=== PATIENT | female | born 1960 | race Caucasian/White ===

== ENCOUNTER 2024-01-08 13:37 | Outpatient (OUT) | payer OTHER, SELFPAY ==
--- NOTE | 2024-01-08 13:50 | MM_ITS ---
Patient Name: KEITH LUNA MR#: [id number] : 1960 Exam Date: 01/08/2024 Ordering Doctor: DRU Redman CNP RADIOLOGY REPORT PROCEDURE: MM TOMOSYNTHESIS SCREENING BI COMPARISON: MG MAMM SCREEN 3D SANNA CAD, 01/05/2023. MG MAMM SCREEN 3D SANNA CAD, 11/14/2021. MG MAMM SCREEN SANNA W CAD, 11/01/2019. MG MAMM SANNA SCRN W CAD DIG, 04/06/2013. INDICATIONS: Screening Calculator Name NCI Breast Cancer Risk Assessment Tool 5 Year Breast Cancer Risk 1.30% Lifetime Breast Cancer Risk 5.50% Personal Breast Cancer No Personal Ovarian Cancer No Treatments None Family Cancers Nephew with leukemia cancer at age 2. LOCATION: [facility] BREAST COMPOSITION: Extremely dense, which lowers the sensitivity of mammography. FINDINGS: DIAGNOSTIC CATEGORY 2--BENIGN FINDING: RIGHT BREAST: No significant suspicious finding. Scattered benign-appearing calcifications are present. No significant change has occurred. LEFT BREAST: No significant suspicious finding. Scattered benign-appearing calcifications are present. Stable, chronic axilla tail lymph node favoring benign etiology. No significant change has occurred. RECOMMENDATIONS: ROUTINE MAMMOGRAM AND CLINICAL EVALUATION IN 12 MONTHS. PLEASE NOTE: A NORMAL MAMMOGRAM DOES NOT EXCLUDE THE POSSIBILITY OF BREAST CANCER. A CLINICALLY SUSPICIOUS PALPABLE LUMP SHOULD BE BIOPSIED. Dictated by: Jeff Zamorano M.D. on 01/08/2024 at 15:09 Approved by: eJff Zamorano M.D. on 01/08/2024 at 15:12
[2024-01-08 14:01] LABS: Basophils Absolute Auto 0.1 10^3/uL (0.0-0.1); Basophils Percent Auto 0.8 % (0.2-2.0); Eosinophils Absolute Auto 0.1 10^3/uL (0.0-0.7); Eosinophils Percent Auto 1.2 % (0.9-7.0); Hematocrit 38.9 % (36.0-48.0); Hemoglobin 12.6 g/dL (12.0-16.0); Immature Granulocytes Abs Auto 0.03 10^3/uL (0.00-0.03); Immature Granulocytes Pct Auto 0.3 % (0.0-0.5); Lymphocytes Percent Auto 32.2 % (20.5-60.0); Mean Corpuscular HGB Conc 32.4 g/dL (29.9-35.2); Mean Corpuscular Hemoglobin 30.1 pg (26.7-34.0); Mean Corpuscular Volume 92.8 fL (81.0-99.0); Mean Platelet Volume 9.1 fL (9.5-13.5); Monocytes Absolute Auto 0.7 10^3/uL (0.3-0.8); Monocytes Percent Auto 7.3 % (1.7-12.0); Neutrophils Absolute Auto 5.3 10^3/uL (1.4-6.5); Neutrophils Percent Auto 58.2 % (43.0-75.0); Platelet Count 343 10^3/uL (150-450); Red Blood Count 4.19 10^6/uL (4.20-5.40); White Blood Count 9.2 10^3/uL (4.0-11.0)
[2024-01-08 15:20] LABS: Alanine Aminotransferase 20 U/L (14-59); Albumin Globulin Ratio 1.2; Albumin Level 4.3 g/dL (3.4-5.0); Alkaline Phosphatase 78 U/L (46-116); Anion Gap 14.7; Aspartate Amino Transferase 13 U/L (15-37); BUN Creatinine Ratio 9.8; Bilirubin Total 0.5 mg/dL (0.2-1.0); Calcium 9.3 mg/dL (8.5-10.1); Carbon Dioxide 26.9 mmol/L (21.0-32.0); Chloride 102 mmol/L (98-107); Chol HDL Ratio 2.4; Cholesterol 153 mg/dL (<=200); Estimated GFR (African America 60 (>=60); Estimated GFR (Non-African Ame 49 (>=60); Globulin 3.5 g/dL; Glucose 87 mg/dL (74-106); HDL Cholesterol 63 mg/dL (40-60); Potassium 3.6 mmol/L (3.5-5.1); Sodium 140 mmol/L (136-145); Total Protein 7.8 g/dL (6.4-8.2); Triglycerides 106 mg/dL (<=150); VLDL CHOLESTEROL 21.2 mg/dL
== END 2024-01-08 13:38 | disposition home or self-care (01) ==
LOC: MAMMO 13:37
PROVIDERS: PCP Nurse Practitioner; Visit Provider Nurse Practitioner
DX: Z12.31 Encounter for screening mammogram for malignant neoplasm of breast (principal); D50.9 Iron deficiency anemia, unspecified; E78.2 Mixed hyperlipidemia; Z72.0 Tobacco use; Z80.6 Family history of leukemia
CPT/HCPCS: 36415; 77063; 77067; 80053; 80061; 82728; 83540; 85025

== ENCOUNTER 2024-01-09 12:20 | Outpatient (REF) | payer OTHER, SELFPAY ==
--- OUTSIDE RECORDS SUMMARY | 2024-01-09 12:22 | XMS_ITS | CCD ---
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 PREOPERATIVE DIAGNOSIS: Retained symptomatic hardware, left distal radius. POSTOPERATIVE DIAGNOSIS: Retained symptomatic hardware, left distal radius. PROCEDURE: Removal of symptomatic hardware, left distal radius. BEHAVIORAL HEALTH WORKER: Praful Celestin M.D. ANESTHESIA: Regional with an axillary block. INDICATION FOR SURGERY: The patient is a 60-year-old female, who underwent an open reduction and internal fixation for treatment of a distal radius fracture. She did well as far as the fracture goes with respect to healing. She has regained all of the motion. She presented recently with some swelling and tenderness over the volar radial aspect of the wrist. It looks as though she has some irritation from the hardware. We are worried about the flexor pollicis longus tendon in particular. I felt the removal of the hardware was indicated. She was brought to the operating room today for that purpose. The risks and benefits were explained prior to surgery and with good understanding it is agreed to proceed. NARRATION: The patient was brought to the operating room and placed on the table in the supine position. An axillary block had been administered per the Anesthesia Service in the holding area. A tourniquet was placed around the proximal left arm. The left upper extremity was prepped and draped out in a sterile manner. She was given preoperative antibiotics. To begin the procedure, after standard time-out, the arm was exsanguinated with an Esmarch bandage and the tourniquet was inflated to 250 mmHg. Using a #15 blade, the previous surgical scar was opened up and utilized once again. Sharp dissection was carried out through the subcutaneous tissue. I could see the palmaris longus tendon on the ulnar side of our exposure just looking under the skin flap and I could see the FCR tendon radially. We went over to the FCR and dissected down onto the tendon. There was a little bit of scar tissue as would be expected. The tendon was dissected free and mobilized and retracted radially. We incised through the floor of the FCR sheath. The palmaris longus tendon was a bit displaced ulnarly. I dissected that out just with the forceps, moved the tendon a bit to make sure that it was the FPL. We went radial to that and got down onto the plate with a Bovie, just elevated soft tissues off the plate from radial to ulnar. Once we had the entire plate exposed, the screws were all removed without difficulty. The plate was taken down. Soft tissue scar from around the plate was debrided with a rongeur. With a Bertrand elevator, I just scraped the volar cortex. The fracture looks to be well healed. C-arm was brought in and I got an AP and lateral view and the hardware was completely out the fracture solid. Seeing that, I dissected the FPL tendon out a little bit more just to get past the area where the end of the plate was. The plate was a little proud and just distal to the watershed zone. The FPL tendon looks fine. There was no fraying or wear. There was a little bit of thick tissue around it that was debrided. The wound was irrigated with normal saline solution. The skin was closed with buried 3-0 Vicryl and then 4-0 Novafil. A sterile dressing of Xeroform gauze, 4x4 fluffs, Kerlix, and an Brian bandage was applied. The tourniquet was released and the drapes were removed. All sponge and needle counts were correct at the time of closure. Her arm was placed into a sling because of the regional block. She was brought to the recovery room in stable condition, having tolerated the procedure well. Electronically Signed by: Toni Elliott M.D. 12/20/2020 01:51 P Toni Elliott M.D. Date Dict: 12/20/2020/08:39 A/Toni Elliott M.D. Date Trans: 12/20/2020 09:00 A/adelita RIVERS_JN:[id number] cc: José Miguel Pedraza D.O. [address] [place] [address] Normal [facility] POC GLUCOSE LABon 12-20-2020 Glucose [Mass/Vol] 89 mg/dL Normal 70-100 [facility] Comment on above: Performed By: #### 8 [id number] #### [address] WRIST LEFT 2 VWSon WRIST LEFT 2 VWS [facility] Department of Radiology [address] [place] [id number] Patient Name: ROSIBEL DON : 1960 Sex: F Age: Race: White Pt. Location: OUTP Patient Status: O Ordered Date: 12/20/2020 8:15:00 AM Completed Date: 12/20/2020 08:40 AM Requesting Provider: TONI ELLIOTT Attending Provider: TONI ELLIOTT Report Copy To: Signs & Symptoms: Hardware removal left wrist History: Comments: Hardware removal left wrist Exam: WRIST LEFT 2 S WRIST LEFT 2 S 12/20/2020 8:40 AM CLINICAL INDICATIONS: Hardware removal left wrist TECHNOLOGIST COMMENTS: Hardware removal of the left wrist with Dr. Elliott - 0.80 minutes of fluoro time 2i mages Siemens c-arm Entered at 0800 and exited at 0830 QUESTION FOR THE RADIOLOGIST: Hardware removal left wrist PROTOCOL: AP(PA) and Lateral views were obtained. COMPARISON: None FINDINGS: For documentation purposes. IMPRESSION: Documentation purposes Electronically signed: Bjorn Tomlinson. Transcribed by: [id number], User Resident: Electronically Signed by: BJORN TOMLINSON @ 12/20/2020 09:10 AM Normal [facility] Comment on above: Order Comment: Hardw are removal left wrist *SARS-CoV-2 COVID-19on 12-17 SARS-CoV-2 (COVID-19) RNA CAREN+probe Ql (Unsp spec) Not detected Normal Not Detected [facility] Comment on above: Order Comment: The A ptima SARS-CoV-2 assay is a nucleic acid amplification test intended for the qualitative detection of RNA from SARS-CoV-2 isolated and purified from nasopharyngeal (CORPORATE LAW ASSISTANT),oropharyngeal (OP), nasal swab, sputum, and bronchoalveolar lavage (BAL) specimens from patients with signs and symptoms of infection who are suspected of COVID-19. Results are for the identification of SARS-CoV-2 RNA. The SARS-CoV-2 RNA is generally detectable during the acute phase of infection. The Aptima SARS-CoV-2 Assay on the iStoryTime and iStoryTime Fusion system is intended for use by laboratory personnel specifically instructed and trained in the operation of the [place] and iStoryTime Fusion system. The Aptima SARS-CoV-2 assay is only for use under the Food and Drug Administration Emergency Use Authorization. Testing is limited to laboratories certified under the Clinical Laboratory Improvement Amendments of 1988 (CLIA), 42 U.S.C. ???263a, to perform high complexity tests. Not Detected: Not detected does not preclude SARS-CoV-2 infection and should not be used as the sole basis for patient management decisions. Not detected results must be combined with clinical observations, patient history, and epidemiological information. Performed By: #### 3 [id number] #### [address] WRIST LEFT 3 VWSon 1 WRIST LEFT 3 VWS [facility] Department of Radiology [address] [place] [address] Patient Name: ROSIBEL DON : 1960 Sex: F Age: Race: White Pt. Location: 84 Patient Status: O Ordered Date: 12/11/2020 9:10:00 AM Completed Date: 12/11/2020 09:15 AM Requesting Provider: TONI ELLIOTT Attending Provider: TONI ELLIOTT Report Copy To: Signs & Symptoms: S52.502D Unsp fx the low end left rad, subs for clos fx w routn heal I10 History: Pauline Comments: Evaluate Exam: WRIST LEFT 3 VWS WRIST LEFT 3 VWS 12/11/2020 9:15 AM CLINICAL INDICATIONS: S52.502D Unsp fx the low end left rad, subs for clos fx w routn heal I10 TECHNOLOGIST COMMENTS: Patient complains of left wrist pain. Patient states history of left wrist surgery 2016. QUESTION FOR THE RADIOLOGIST: Evaluate PROTOCOL: AP,Lateral and Oblique views were obtained. COMPARISON: Fluoroscopic images 09/10/2017, left wrist radiographs 08/13/2017 FINDINGS: Satisfactory alignment of distal radius status post ORIF with sideplate and screws. No discrete residual fracture line. Hardware is intact without evidence for loosening. IMPRESSION: Satisfactory alignment of distal radius status post ORIF. No discrete residual fracture line. Electronically signed: Mann Gaspar. Transcribed by: [id number], User Resident: Electronically Signed by: MANN GASPAR @ 12/11/2020 02:00 PM Normal [facility] Comment on above: Order Comment: Evalu ate XR HAND, LEFTon 07-10-2017 XR HAND, LEFT [facility] Imaging Services [address] [place], [place] [id number] Diagnostic Imaging Report : [id number] Signed Name: ROSIBEL DON MRUN: [id number] : 1960 Loc: ED Age / Sex: 56 / F ADM Status: REG ER ADM Date: 07/10/17 Room/Bed: Ordering Physician: Chepe Taylor MD Procedure: XR HAND, LEFT Order Number(s): [id number] Ordered Date: 07/10/17 Ordered Time: 152 # OF VIEWS: AP, oblique and lateral. REASON FOR EXAM: injury COMPARISON: Left wrist same day per FINDINGS: There is a severely comminuted fracture of the radial metaphysis extending to the radiocarpal joint. There is anterior full shaft with displacement of most of the metaphyseal fracture fragments on the lateral view. Displacement of the carpus of the wrist anteriorly as well in addition to the metaphysis segments. There is some posterior override appearance of the radius and ulna in relation to the carpus on lateral view. There is lucency traversing the waist of the scaphoid suggesting fracture. The metacarpals and phalanges are intact. Mild soft tissue swelling about the wrist IMPRESSION: Severely comminuted intra-articular fracture of the radial metaphysis with displacement as noted above. Fracture lucency through the waist of the scaphoid is also noted. Dictated By: Dodie Garcia DO Dictated Date/Time: 07/10/17 1604 Signed By: Praveen Garcia DO Signed Date/Time: 07/10/17 1611 Transcribed Date/Time: 07/10/17 1607 Normal [facility] XR KNEE, BILATERALon 017 XR KNEE, BILATERAL [facility] Diagnostic Imaging Services [address] [place], [place] [id number] Diagnostic Imaging Report : [id number] Signed Name: ROSIBEL DON MRUN: [id number] : 1960 Loc: ED Age / Sex: 56 / F ADM Status: REG ER ADM Date: 07/10/17 Room/Bed: Ordering Physician: Chepe Taylor MD Procedure: XR KNEE, BILATERAL Order Number(s): [id number] Ordered Date: 07/10/17 Ordered Time: 1522 # OF VIEWS: AP and cross-table lateral views of each knee. REASON FOR EXAM: injury COMPARISON: None FINDINGS: The medial and lateral joint compartments are anatomic. Small enthesopathic spurs at the superior poles of the patellae. The patellofemoral joints are satisfactory. No discrete fracture. No acute periarticular soft tissue findings. IMPRESSION: No acute bone or soft tissue findings Dictated By: Dodie Garcia DO Dictated Date/Time: 07/10/17 161 Signed By: Praveen Garcia DO Signed Date/Time: 07/10/17 1615 Transcribed Date/Time: 07/10/17 161 [facility] XR WRIST, LEFTon 07-10-2017 XR WRIST, LEFT [facility] Diagnostic Imaging Services [address] [place] [address] Diagnostic Imaging Report : [id number] Signed Name: ROSIBEL DON MRUN: [id number] : 1960 Loc: ED Age / Sex: 56 / F ADM Status: REG ER ADM Date: 07/10/17 Room/Bed: Ordering Physician: Chepe Taylor MD Procedure: XR WRIST, LEFT Order Number(s): [id number] Ordered Date: 07/10/17 Ordered Time: 1522 # OF VIEWS: AP, oblique and lateral. REASON FOR EXAM: injury COMPARISON: Right hand same day. FINDINGS: A severe comminuted fracture of the radial metaphysis with 1 full shaft with displacement of the most of the metaphyseal segments anteriorly on lateral view. There is slight dorsal override appearance of the radius and ulna in relation to the carpus. Fracture lucency through the waist of the scaphoid is present. The remaining bones are intact. IMPRESSION: Severely comminuted radial metaphyseal fracture with displacement as noted above. Fracture lucency traverses the waist of the scaphoid as well. Dictated By: Dodie Garcia DO Dictated Date/Time: 07/10/17 160 Signed By: Praveen Garcia DO Signed Date/Time: 07/10/17 161 Transcribed Date/Time: 07/10/17 160 [facility] Vital Signs Date Time Vital Sign Value Performing Clinician Chuck jacobsen 12-15-2023 13:20-0500 Body height 167.6 cm Dorothea Redman NP Work Phone: [facility] 12-15-2023 13:20-0500 Body mass index (BMI) [Ratio] 23.6 kg/m2 Dorothea Americaz CORPORATE LAW ASSISTANT Work Phone: [facility] 12-15-2023 13:20-0500 Body temperature 97.81 [degF] Dorothea Feroz CORPORATE LAW ASSISTANT Work Phone: [facility] 12-15-2023 13:20-0500 Body weight 66.32 kg Dorothea Americaz CORPORATE LAW ASSISTANT Work Phone: [facility] 12-15-2023 13:20-0500 Diastolic blood pressure 68 mm[Hg] Dorothea Aichrashiz CORPORATE LAW ASSISTANT Work Phone: [facility] 12-15-2023 13:20-0500 Heart rate 81 /min Dorothea Americaz CORPORATE LAW ASSISTANT Work Phone: [facility] 12-15-2023 13:20-0500 Respiratory rate 18 /min Dorothea Americaz CORPORATE LAW ASSISTANT Work Phone: [facility] 12-15-2023 13:20-0500 SaO2% (BldA) [Mass fraction] 98 % Dorothea Americaz CORPORATE LAW ASSISTANT Work Phone: [facility] 12-15-2023 13:20-0500 Systolic blood pressure 98 mm[Hg] Dorothea Americaz CORPORATE LAW ASSISTANT Work Phone: [facility] Encounters Encounter Date Encounter Type Care Provider Facility Start: 12-15-2023 End: 12-15-2023 ambulatory DOROTHEA FEROZ Not Available Start: 12-15-2023 Bamboo flowsheet Dorothea Feroz CORPORATE LAW ASSISTANT Work Phone: [facility] Start: 12-15-2023 Bamboo flowsheet Dorothea Americaz CORPORATE LAW ASSISTANT Work Phone: [facility] Start: 12-15-2023 End: 12-15-2023 Office outpatient visit 25 minutes Dorotheaazeb Redman CORPORATE LAW ASSISTANT Work Phone: [facility] Comment on above: Primary insomnia (Pr imary Dx); Iron deficiency anemia, unspecified iron deficiency anemia type; Mixed hyperlipidemia (CMS/HCC); Encounter for screening mammogram for malignant neoplasm of breast; Tobacco user; BMI 23.0-23.9, adult; Restless leg syndrome Start: 01-05-2023 End: 01-06-2023 ambulatory DRU REDMAN Facility: Start: 12-31-2022 End: 01-01-2023 ambulatory MECHANICAL PROCESS ENGINEER DOROTHEA REDMAN Facility: Start: 05-21-2022 End: 05-22-2022 ambulatory MECHANICAL PROCESS ENGINEER DOROTHEA REDMAN Facility: Start: 05-20-2022 End: 05-21-2022 ambulatory DRU REDMAN Facility: Start: 12-20-2020 End: 12-21-2020 ambulatory TONI ELLIOTT Facility:[facility] Start: 07-10-2017 End: 07-10-2017 Emergency department patient visit Chepe [facility] Facility:[facility] Procedures Date Procedure Procedure Detail Performing Clinician Start: 12-15-2023 Colonoscopy Dorothea hodgson CORPORATE LAW ASSISTANT Work Phone: Start: 01-05-2023 Mammography Dorothea hodgson CORPORATE LAW ASSISTANT Work Phone: Start: 12-20-2020 ANESTH LOWER ARM SURGERY TONI ELLIOTT Start: 12-20-2020 REMOVAL OF SUPPORT IMPLANT TONI ELLIOTT Plan of Treatment Date Care Activity Detail Author Start: 12-15-2033 Screening for malign ant neoplasm of colon [facility] Start: 05-01-2024 Influenza vaccination Influenza Vacc ine (#1) [facility] Comment on above: Postponed from 07/03 (Patient Refused) Start: 01-13-2024 End: 02-12-2025 MG Breast - bilateral Screening Bilateral screening mammogram Imaging Routine Encounter for screening mammogram for malignant neoplasm of breast Expected: 01/13/2024 (Approximate), Expires: 02/12/2025 [facility] Comment on above: Expected: 01/13/2024 (Approximate), Expires: 02/12/2025 Start: 01-13-2024 End: 01-13-2024 Patient encounter procedure 01/13/2024 1:00 PM EDT Office Visit [facility]ON[place] [address] [place] [address] Dorothea Redman, CORPORATE LAW ASSISTANT [address] [place] [phone] [facility] Start: 01-06-2024 Screening for malign ant neoplasm of breast Mammogram [facility] Start: 12-15-2023 End: 12-15-2024 CBC W Auto Differential panel - Blood CBC and differential Lab Routine Iron deficiency anemia, unspecified iron deficiency anemia type Expected: 12/15/2023 (Approximate), Expires: 12/15/2024 [facility] Work Phone: Comment on above: Expected: 12/15/2023 (Approximate), Expires: 12/15/2024 Start: 12-15-2023 End: 12-15-2024 Comprehensive metabolic 2000 panel - Serum or Plasma Comprehensive metabolic panel Lab Routine Iron deficiency anemia, unspecified iron deficiency anemia type Mixed hyperlipidemia (CMS/HCC) Expected: 12/15/2023 (Approximate), Expires: 12/15/2024 [facility] Comment on above: Expected: 12/15/2023 (Approximate), Expires: 12/15/2024 Start: 12-15-2023 End: 12-15-2024 Ferritin [Mass/volume] in Serum or Plasma Ferritin Lab Routine Iron deficiency anemia, unspecified iron deficiency anemia type Expected: 12/15/2023 (Approximate), Expires: 12/15/2024 [facility] Comment on above: Expected: 12/15/2023 (Approximate), Expires: 12/15/2024 Start: 12-15-2023 End: 12-15-2024 Iron and Iron binding capacity panel - Serum or Plasma Iron level Lab Routine Iron deficiency anemia, unspecified iron deficiency anemia type Expected: 12/15/2023 (Approximate), Expires: 12/15/2024 [facility] Comment on above: Expected: 12/15/2023 (Approximate), Expires: 12/15/2024 Start: 12-15-2023 End: 12-15-2024 Lipid 1996 panel - Serum or Plasma Lipid panel Lab Routine Mixed hyperlipidemia (CMS/HCC) Expected: 12/15/2023 (Approximate), Expires: 12/15/2024 [facility] Comment on above: Expected: 12/15/2023 (Approximate), Expires: 12/15/2024 Start: 12-15-2023 End: 12-15-2024 Urinalysis complete panel - Urine Urinalysis with reflex microscopic (clean catch) Lab Routine Iron deficiency anemia, unspecified iron deficiency anemia type Tobacco user Expected: 12/15/2023 (Approximate), Expires: 12/15/2024 [facility] Comment on above: Expected: 12/15/2023 (Approximate), Expires: 12/15/2024 Start: 12-15-2023 End: 12-15-2023 Patient encounter procedure 12/15/2023 1:20 PM EST Office Visit [facility] [address] [place] [phone] Dorothea Redman NP [address] [place] [id number] Iron deficiency anemia, unspecified iron deficiency anemia type (Primary Dx); Mixed hyperlipidemia (CMS/HCC); Encounter for screening mammogram for malignant neoplasm of breast; Tobacco user [facility] Comment on above: Iron deficiency anem ia, unspecified iron deficiency anemia type (Primary Dx); Mixed hyperlipidemia (CMS/HCC); Encounter for screening mammogram for malignant neoplasm of breast; Tobacco user Start: 07-03-2023 Influenza vaccination Influenza Vacc ine (#1) [facility] Start: 1990 Screening for malign ant neoplasm of cervix [facility] Start: 1981 Screening for malign ant neoplasm of cervix Pap Smear [facility] Start: 1960 Screening for malign ant neoplasm of colon [facility] Immunizations Immunization Date Immunization Notes Care Provider Fa cili 06-30-2019 diphtheria, tetanus toxoids and acellular pertussis vaccine Dorothea Redman NP Work Phone: [facility] 09-22-2009 novel influenza-H1N1 -09, preservative-free, injectable Dorothea Redman NP Work Phone: [facility] Payers Date Payer Category Payer Unknown [id number] 2023 Unknown JULIETYessi LEWIS Azeb [employer] [facility] [id number] 2023-Present [phone] [address] [place] [address] [id number] 1960 Unknown [id number] 7 1960 Unknown [id number] 3 1960 Unknown [id number] 3 1960 Unknown [id number] 3 1960 Unknown [id number] 3 1960 Unknown [id number] 59 Unknown [id number] Social History Date Type Detail Facility Start: 12-09-2023 Tobacco smoking status UTIS Smokes t obacco daily [facility] History of tobacco use Cigarette Smoker [facility] Start: 12-10-2023 End: 12-15-2023 [facility] Start: 12-10-2023 End: 12-15-2023 Humiliation, Afraid, Rape, and Kick questionnaire [HARK] [facility] Within the last year , have you been afraid of your partner or ex-partner? No [facility] Are you now , , , , never or living with a partner? [facility] How often to you hav e a drink containing alcohol? 2-4 times a month [facility] How many standard dr inks containing alcohol do you have on a typical day? 1 or 2 [facility] How often do you hav e 6 or more drinks on 1 occasion? Never [facility] How hard is it for y ou to pay for the very basics like food, housing, medical care, and heating Not hard at all [facility] Do you feel stress - tense, restless, nervous, or anxious, or unable to sleep at night because your mind is troubled all the time - these days [OSQ] To some extent [facility] (I/We) worried wheth er (my/our) food would run out before (I/we) got money to buy more. Never true [facility] Start: 1960 Sex Assigned At Not on file [facility] Start: 12-15-2023 Alcohol intake Ex-drinker (finding) [facility] Start: 12-15-2023 Alcohol Comment caffine: 6-8 c ups of coffee daily [facility] History of Present illness Narrative 12-15-2023 Dorothea Redman NP - 12/15/2023 1:53 PM Hi Redman NP - 12/15/2023 1:53 PM Hi Redman NP - 12/15/2023 1:20 PM EST Note Date & Type Note Facility 12-15-2023 History of Presen t illness Narrative Associated Problem(s): Tobacco user Recommend low dose CT scan for lung cancer screening, declines Associated Problem(s): Primary insomnia Doing well on trazodone cont current meds Images from the original note were not included. Rosibel Don is a 63 y.o. female presents with chief complaint of No chief complaint on file. HPI: Insomnia This is a chronic problem. The current episode started more than 1 year ago. The problem occurs daily. The problem has been unchanged. Pertinent negatives include no abdominal pain, arthralgias, chest pain, chills, congestion, coughing, fever, headaches, joint swelling, myalgias, nausea, rash, sore throat or vomiting. Nothing aggravates the symptoms. Treatments tried: trazodone. The treatment provided significant relief. SUBJECTIVE: MEDICATIONS: Current Outpatient Medications Medication Instructions albuterol HFA 90 mcg/act inhaler 2 puffs, Inhalation, Every 4 hours PRN ferrous sulfate 325 mg, Oral, Daily ibuprofen 800 MG tablet 1 tablet, Oral, Every 8 hours PRN lovastatin (MEVACOR) 20 mg, Oral, Daily tiZANidine (ZANAFLEX) 4 mg, Oral, Nightly traZODone (DESYREL) 100 mg, Oral, Nightly ALLERGIES: No Known Allergies REVIEW OF SYMPTOMS: Review of Systems Constitutional: Negative for appetite change, chills and fever. HENT: Negative for congestion, ear pain and sore throat. Eyes: Negative for pain, discharge, redness and visual disturbance. Respiratory: Negative for cough, shortness of breath and wheezing. Cardiovascular: Negative for chest pain, palpitations and leg swelling. Gastrointestinal: Negative for abdominal pain, blood in stool, constipation, diarrhea, nausea and vomiting. Genitourinary: Negative for difficulty urinating, dysuria and frequency. Musculoskeletal: Negative for arthralgias, back pain, joint swelling and myalgias. Skin: Negative for rash and wound. Neurological: Negative for dizziness, tremors, seizures, syncope and headaches. Psychiatric/Behavioral: Negative for behavioral problems, self-injury and suicidal ideas. The patient has insomnia. The patient is not nervous/anxious. Hematological: Does not bruise/bleed easily. Endocrine: Negative for polydipsia, polyphagia and polyuria. Allergic/Immunologic: Negative for environmental allergies and food allergies. PAST MEDICAL HISTORY Past Medical History: Diagnosis Date Positive colorectal cancer screening using Cologuard test Superficial phlebitis and thrombophlebitis of left lower extremity Tobacco user Varicose veins of bilateral lower extremities with other complications Past Surgical History: Procedure Laterality Date SECTION, LOW TRANSVERSE x 1 OOPHORECTOMY WRIST SURGERY Left Repair left wrist plate then removed family history includes Arthritis in her mother; Asthma in her mother; COPD in her father and mother; Heart disease in her father; Hypertension in her father; Kidney disease in her father; Neuropathy in her mother. OBJECTIVE: Visit Vitals BP 98/68 (BP Location: Left arm, Patient Position: Sitting, BP Cuff Size: Adult) Pulse 81 Temp 97.8 F (Temporal) Resp 18 Ht 5' 6 Wt 146 lb 3.2 oz SpO2 98% BMI 23.60 kg/m Smoking Status Every Day BSA 1.76 m Physical Exam Constitutional: General: She is not in acute distress. Appearance: Normal appearance. HENT: Head: Normocephalic and atraumatic. Right Ear: External ear normal. Left Ear: External ear normal. Nose: Nose normal. Mouth/Throat: Mouth: Mucous membranes are moist. Eyes: Extraocular Movements: Extraocular movements intact. Conjunctiva/sclera: Conjunctivae normal. Cardiovascular: Rate and Rhythm: Normal rate and regular rhythm. Pulses: Normal pulses. Heart sounds: Normal heart sounds. Pulmonary: Effort: Pulmonary effort is normal. Breath sounds: Normal breath sounds. Abdominal: General: Bowel sounds are normal. There is no distension. Palpations: Abdomen is soft. There is no mass. Tenderness: There is no abdominal tenderness. Musculoskeletal: General: Normal range of motion. Cervical back: Normal range of motion and neck supple. Skin: General: Skin is warm and dry. Capillary Refill: Capillary refill takes 2 to 3 seconds. Findings: No rash. Neurological: General: No focal deficit present. Mental Status: She is alert and oriented to person, place, and time. Psychiatric: Mood and Affect: Mood normal. Behavior: Behavior normal. Thought Content: Thought content normal. Judgment: Judgment normal. ASSESSMENT AND PLAN: No follow-ups on file. Problem List Items Addressed This Visit Primary insomnia Doing well on trazodone cont current meds DERIAN (iron deficiency anemia) - Primary Relevant Orders CBC and differential Comprehensive metabolic panel Urinalysis with reflex microscopic (clean catch) Iron level Ferritin Mixed hyperlipidemia (CMS/HCC) Relevant Orders Comprehensive metabolic panel Lipid panel Tobacco user Recommend low dose CT scan for lung cancer screening, declines Relevant Orders Urinalysis with reflex microscopic (clean catch) Encounter for screening mammogram for malignant neoplasm of breast Relevant Orders Bilateral screening mammogram BMI 23.0-23.9, adult Restless leg syndrome Relevant Medications tiZANidine (Zanaflex) 4 MG tablet documented in this encounter [facility] Evaluation note Note Date & Type Note Facility Evaluation note Diagnosis Primary insomnia- Primary Persistent disorder of initiating or maintaining sleep Iron deficiency anemia, unspecified iron deficiency anemia type Mixed hyperlipidemia (CMS/HCC) Mixed hyperlipidemia Encounter for screening mammogram for malignant neoplasm of breast Tobacco user Tobacco use disorder BMI 23.0-23.9, adult Restless leg syndrome Restless legs syndrome (RLS) documented in this encounter [facility] Summary Purpose Family History No Family History Records FoundNo Family History Records FoundNo Family History Records FoundNo Family History Records Found Advance Directives No Advanced Directives Records FoundNo Advanced Directives Records FoundNo Advanced Directives Records FoundNo Advanced Directives Records Found Additional Source Comments INFORMATION SOURCE (unrecogn ized section and content) DATE CREATED AUTHOR 04/27/2018 [facility] DATE CREATED AUTHOR AUTHOR'S ORGANIZ ATION 02/27/2021 [facility] DATE CREATED AUTHOR AUTHOR'S ORGANIZ ATION 01/06/2023 [facility] DATE CREATED AUTHOR AUTHOR'S ORGANIZ ATION 12/17/2023 [facility] d[facility] Specialists EPIC Care Teams (unrecognized sec tion and content) Plastics Pattern[employer] Relationship Specialty Start Date End Date Louie Cedillo MD [address] [place] [id number] PCP - General Family Medicine 12/07/23 Dorothea Redman NP [address] [place] [phone] Nurse Practitioner Family Medicine 07/08/23 [employer] Relationship Specialty Start Date End Date Louie Cedillo MD [address] [place] [id number] PCP - General Family Medicine 12/07/23 Dorothea Redman NP [address] [place] [phone] Nurse Practitioner Family Medicine 07/08/23 FOR RECORDS PERTAINING TO PATIENTS WHO ARE OR HAVE BEEN ENROLLED IN A CHEMICAL DEPENDENCY/SUBSTANCEABUSE PROGRAM, SOME INFORMATION MAY BE OMITTED. This clinical summary was aggregated from multiple sources. Caution should be exercised in using it in the provision of clinical care. This summary normalizes information from multiple sources, and as a consequence, information in this document may materially change the coding, format and clinical context of patient data. In addition, data may be omitted in some cases. CLINICAL DECISIONS SHOULD BE BASED ON THE PRIMARY CLINICAL RECORDS. [facility]. provides no warranty or guarantee of the accuracy or completeness of information in this document.
[2024-01-09 12:36] LABS: Bilirubin Urine NEGATIVE (NEGATIVE); Blood Urine NEGATIVE (NEGATIVE); Clarity Urine CLEAR (CLEAR); Color Urine LT. YELLOW (YELLOW); Glucose Urine UA NEGATIVE (NEGATIVE); Ketones Urine TRACE mg/dL (NEGATIVE); Leukocyte Esterase Urine NEGATIVE (NEGATIVE); Nitrite Urine NEGATIVE (NEGATIVE); Protein Urine NEGATIVE (NEG/TRACE); Urobilinogen Urine 0.2 EU/dL (0.2-1.0)
[2024-01-09 12:51] LABS: Urine Microscopic Indicated NO
== END 2024-01-09 12:21 | disposition home or self-care (01) ==
LOC: LAB 12:20
PROVIDERS: PCP Nurse Practitioner; Visit Provider Nurse Practitioner
DX: D50.9 Iron deficiency anemia, unspecified (principal); E78.2 Mixed hyperlipidemia; Z72.0 Tobacco use
CPT/HCPCS: 81003

== ENCOUNTER 2024-08-03 13:26 | Outpatient (OUT) | payer OTHER, SELFPAY ==
--- OUTSIDE RECORDS SUMMARY | 2024-08-03 13:35 | XMS_ITS | CCD ---
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 Mammography 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: Start: 12-20-2020 ANESTH LOWER ARM SURGERY TONI ELLIOTT Start: 12-20-2020 REMOVAL OF SUPPORT IMPLANT TONI ELLIOTT Plan of Treatment Date Care Activity Detail Author Start: 12-15-2033 Screening for malign ant neoplasm of colon [facility] Start: 05-01-2024 Influenza vaccination Influenza Vacc ine (#1) [facility] Comment on above: Postponed from 07/03 (Patient Refused) Start: 01-13-2024 End: 02-12-2025 MG Breast - bilateral Screening Bilateral screening mammogram Imaging Routine Encounter for screening mammogram for malignant neoplasm of breast Expected: 01/13/2024 (Approximate), Expires: 02/12/2025 [facility] Comment on above: Expected: 01/13/2024 (Approximate), Expires: 02/12/2025 Start: 01-13-2024 End: 01-13-2024 Patient encounter procedure 01/13/2024 1:00 PM EDT Office Visit [facility] [address] [place] [address] Dorothea Redman NP [address] [place] [address] [facility] Start: 01-06-2024 Screening for malign ant neoplasm of breast Mammogram [facility] Start: 12-15-2023 End: 12-15-2024 CBC W Auto Differential panel - Blood CBC and differential Lab Routine Iron deficiency anemia, unspecified iron deficiency anemia type Expected: 12/15/2023 (Approximate), Expires: 12/15/2024 [facility] Work Phone: Comment on above: Expected: 12/15/2023 (Approximate), Expires: 12/15/2024 Start: 12-15-2023 End: 12-15-2024 Comprehensive metabolic 2000 panel - Serum or Plasma Comprehensive metabolic panel Lab Routine Iron deficiency anemia, unspecified iron deficiency anemia type Mixed hyperlipidemia (CMS/HCC) Expected: 12/15/2023 (Approximate), Expires: 12/15/2024 [facility] Comment on above: Expected: 12/15/2023 (Approximate), Expires: 12/15/2024 Start: 12-15-2023 End: 12-15-2024 Ferritin [Mass/volume] in Serum or Plasma Ferritin Lab Routine Iron deficiency anemia, unspecified iron deficiency anemia type Expected: 12/15/2023 (Approximate), Expires: 12/15/2024 [facility] Comment on above: Expected: 12/15/2023 (Approximate), Expires: 12/15/2024 Start: 12-15-2023 End: 12-15-2024 Iron and Iron binding capacity panel - Serum or Plasma Iron level Lab Routine Iron deficiency anemia, unspecified iron deficiency anemia type Expected: 12/15/2023 (Approximate), Expires: 12/15/2024 [facility] Comment on above: Expected: 12/15/2023 (Approximate), Expires: 12/15/2024 Start: 12-15-2023 End: 12-15-2024 Lipid 1996 panel - Serum or Plasma Lipid panel Lab Routine Mixed hyperlipidemia (CMS/HCC) Expected: 12/15/2023 (Approximate), Expires: 12/15/2024 [facility] Comment on above: Expected: 12/15/2023 (Approximate), Expires: 12/15/2024 Start: 12-15-2023 End: 12-15-2024 Urinalysis complete panel - Urine Urinalysis with reflex microscopic (clean catch) Lab Routine Iron deficiency anemia, unspecified iron deficiency anemia type Tobacco user Expected: 12/15/2023 (Approximate), Expires: 12/15/2024 [facility] Comment on above: Expected: 12/15/2023 (Approximate), Expires: 12/15/2024 Start: 12-15-2023 End: 12-15-2023 Patient encounter procedure 12/15/2023 1:20 PM EST Office Visit [facility] [address] [place] [phone] Dorothea Redman NP [address] [place] [address] Iron deficiency anemia, unspecified iron deficiency anemia type (Primary Dx); Mixed hyperlipidemia (CMS/HCC); Encounter for screening mammogram for malignant neoplasm of breast; Tobacco user [facility] Comment on above: Iron deficiency anem ia, unspecified iron deficiency anemia type (Primary Dx); Mixed hyperlipidemia (CMS/HCC); Encounter for screening mammogram for malignant neoplasm of breast; Tobacco user Start: 07-03-2023 Influenza vaccination Influenza Vacc ine (#1) [facility] Start: 1990 Screening for malign ant neoplasm of cervix [facility] Start: 1981 Screening for malign ant neoplasm of cervix Pap Smear [facility] Start: 1960 Screening for malign ant neoplasm of colon [facility] Immunizations Immunization Date Immunization Notes Care Provider Fa cility 06-30-2019 diphtheria, tetanus toxoids and acellular pertussis vaccine Dorothea Redman NP Work Phone: [facility] 09-22-2009 novel influenza-H1N1 -09, preservative-free, injectable Dorothea Feroz LAY Work Phone: [facility] Payers Date Payer Category Payer Unknown JOSE ARMANDO SUÁREZ ANDRES [email or web address] [id number] 2023-Present [phone] [address] [place] [address] [id number] 2023 Unknown [id number] 1960 Unknown [id number] 7 1960 Unknown [id number] 3 1960 Unknown [id number] 3 1960 Unknown [id number] 3 1960 Unknown [id number] 3 1960 Unknown [id number] 59 1960 Unknown [id number] 59 1960 Unknown [id number] 59 Unknown [id number] Social History Date Type Detail Facility Start: 12-09-2023 Tobacco smoking status AKIS Smokes t obacco daily [facility] Healthcare History of tobacco use Cigarette Smoker [...] section and content) DATE CREATED AUTHOR 04/27/2018 [facility] DATE CREATED AUTHOR AUTHOR'S ORGANIZ ATION 02/27/2021 [facility] DATE CREATED AUTHOR AUTHOR'S ORGANIZ ATION 01/06/2023 [facility] DATE CREATED AUTHOR AUTHOR'S ORGANIZ ATION 07/24/2024 [facility] EPIC Care Teams (unrecognized sec tion and content) Recycling Director Relationship Specialty Start Date End Date Louie Cedillo MD [address] [place] [address] PCP - General Family Medicine 12/07/23 Dorothea Redman NP [address] [place] [address] Nurse Practitioner Family Medicine 07/08/23 Recycling Director Relationship Specialty Start Date End Date Louie Cedillo MD [address] [place] [address] PCP - General Family Medicine 12/07/23 Dorothea Redman NP [address] [place] [address] Nurse Practitioner Family Medicine 07/08/23 FOR RECORDS [...] BE BASED ON THE PRIMARY CLINICAL RECORDS. [employer] provides no warranty or guarantee of the accuracy or completeness of information in this document.
[2024-08-03 13:42] LABS: Basophils Absolute Auto 0.1 10^3/uL (0.0-0.1); Basophils Percent Auto 1.1 % (0.2-2.0); Eosinophils Absolute Auto 0.2 10^3/uL (0.0-0.7); Eosinophils Percent Auto 2.8 % (0.9-7.0); Hematocrit 39.2 % (36.0-48.0); Immature Granulocytes Abs Auto 0.03 10^3/uL (0.00-0.03); Immature Granulocytes Pct Auto 0.4 % (0.0-0.5); Lymphocytes Absolute Auto 3.3 10^3/uL (1.2-3.8); Lymphocytes Percent Auto 39.9 % (20.5-60.0); Mean Corpuscular HGB Conc 33.2 g/dL (29.9-35.2); Mean Corpuscular Hemoglobin 30.5 pg (26.7-34.0); Mean Platelet Volume 9.4 fL (9.5-13.5); Monocytes Absolute Auto 0.6 10^3/uL (0.3-0.8); Neutrophils Percent Auto 48.8 % (43.0-75.0); Platelet Count 297 10^3/uL (150-450); Red Blood Count 4.26 10^6/uL (4.20-5.40); Red Cell Distribution Width 12.5 % (11.0-15.0); White Blood Count 8.2 10^3/uL (4.0-11.0)
[2024-08-03 14:26] LABS: Alanine Aminotransferase 14 U/L (14-59); Albumin Globulin Ratio 1.2; Albumin Level 3.8 g/dL (3.4-5.0); Alkaline Phosphatase 84 U/L (46-116); Anion Gap 11.6; Aspartate Amino Transferase 12 U/L (15-37); BUN Creatinine Ratio 10.5; Bilirubin Total 0.3 mg/dL (0.2-1.0); Chloride 101 mmol/L (98-107); Estimated GFR (African America >60 (>=60 mL/min/1.73m^2); Estimated GFR (Non-African Ame 53 (>=60 mL/min/1.73m^2); Globulin 3.1 g/dL; Glucose 93 mg/dL (74-106); Potassium 3.6 mmol/L (3.5-5.1); Sodium 138 mmol/L (136-145); Thyroid Stimulating Hormone 1.233 uIU/mL (0.358-3.740); Total Protein 6.9 g/dL (6.4-8.2)
[2024-08-03 14:39] LABS: Free T4 0.88 ng/dL (0.76-1.46)
[2024-08-04 04:12] LABS: Vitamin B12 576 pg/mL (232-1245)
== END 2024-08-03 13:27 | disposition home or self-care (01) ==
LOC: LAB 13:28
PROVIDERS: PCP Nurse Practitioner; Visit Provider Nurse Practitioner
DX: R53.83 Other fatigue (principal); D50.9 Iron deficiency anemia, unspecified
CPT/HCPCS: 36415; 80053; 82607; 82728; 83540; 84439; 84443; 85025

== ENCOUNTER 2025-01-31 13:31 | Outpatient (OUT) | payer OTHER, SELFPAY ==
--- NOTE | 2025-01-31 13:36 | MM_ITS ---
Patient Name: KEITH LUNA MR#: [id number] : 1960 Exam Date: 01/31/2025 Ordering Doctor: DRU Redman CNP RADIOLOGY REPORT PROCEDURE: MM TOMOSYNTHESIS SCREENING BI COMPARISON: MM TOMOSYNTHESIS SCREENING BI, 01/08/2024. MG MAMM SCREEN 3D SANNA CAD, 01/05/2023. MG MAMM SCREEN 3D SANNA CAD, 11/14/2021. MG MAMM SANNA SCRN W CAD DIG, 04/06/2013. INDICATIONS: Screening for malignant neoplasm Calculator Name NCI Breast Cancer Risk Assessment Tool 5 Year Breast Cancer Risk 1.30% Lifetime Breast Cancer Risk 5.30% Personal Breast Cancer No Personal Ovarian Cancer No Treatments None Family Cancers Nephew with leukemia cancer at age 2. LOCATION: [facility] BREAST COMPOSITION: There are scattered areas of fibroglandular density. FINDINGS: DIAGNOSTIC CATEGORY 1--NEGATIVE. RIGHT BREAST: No significant suspicious finding. LEFT BREAST: No significant suspicious finding. RECOMMENDATIONS: ROUTINE MAMMOGRAM AND CLINICAL EVALUATION IN 12 MONTHS. PLEASE NOTE: A NORMAL MAMMOGRAM DOES NOT EXCLUDE THE POSSIBILITY OF BREAST CANCER. A CLINICALLY SUSPICIOUS PALPABLE LUMP SHOULD BE BIOPSIED. Dictated by: Derick Hughes DO on 01/31/2025 at 16:19 Approved by: Derick Hughes DO on 01/31/2025 at 16:29
--- NOTE | 2025-01-31 14:05 | CT_ITS ---
The [address] [address] Patient Name: KEITH LUNA MRN: [id number] date: 1960 Sex: F Assigned Patient Location: [facility] Current Patient Location: [facility] Accession/Order Number: [id number] Exam Date: 01/31/2025 14:57 Report Date: 01/31/2025 15:01 At the request of: MARIS BAHENA NP Procedure: CT lung screening low-dose CT Chest lung screening without contrast TECHNIQUE: Axial imaging with 2-D reconstruction. The CT exam was performed using one or more the following dose reduction techniques: Automated exposure control, adjustment of the MA and/or Kv according to patient size, or use of the iterative reconstruction technique. History: COPD. Current smoker. COMPARISON: 10/22/2019 THYROID: Unremarkable TRACHEA AND BRONCHI: Patent ESOPHAGUS: Unremarkable. HEART: Within normal limits PERICARDIAL EFFUSION: None CORONARY ARTERY CALCIFICATION: None MEDIASTINUM: No adenopathy. No pneumoperitoneum. No mediastinal hematoma. PULMONARY JOHNATHAN: No hilar mass or adenopathy is seen. THORACIC AORTA Unremarkable LUNG NODULE no developing lung nodule LUNGS: Apical predominant bullous/emphysematous changes. PLEURAL EFFUSION: None PNEUMOTHORAX: No pneumothorax seen. CHEST WALL: No abnormality AXILLA:Unremarkable BONY STRUCTURES Intact UPPER ABDOMEN: Images of the upper abdomen are noncontributory. CT/CT lung screening low-dose IMPRESSION: No visible lung nodule. FINAL ASSESSMENT: Negative. Lung-RADS Version 1.0 Assessment Category: 1 REMARKS: Continued annual screening with LDCT in 12 months is recommended. Impression dictated by: Neto Agosto M.D.01/31/2025 3:01 PM Dictation Location: [employer] Electronically authenticated by: [id number] Y Date: 01/31/2025 15:01
== END 2025-01-31 13:32 | disposition home or self-care (01) ==
LOC: RAD 13:32
PROVIDERS: PCP Nurse Practitioner; Visit Provider Nurse Practitioner
DX: Z12.31 Encounter for screening mammogram for malignant neoplasm of breast (principal); F17.210 Nicotine dependence, cigarettes, uncomplicated; Z12.2 Encounter for screening for malignant neoplasm of respiratory organs; Z78.0 Asymptomatic menopausal state; Z80.6 Family history of leukemia
CPT/HCPCS: 71271; 77063; 77067; 77080